=== PATIENT | female | born 1950 ===

== ENCOUNTER 2021-03-26 06:00 | Day surgery (SDC) | payer OTHER | END 2021-03-26 10:25 | disposition home or self-care (01) | LOC: AMB-ENDOS 06:00 | PROVIDERS: ATTEND Colon & Rectal Surgery | DX: K62.89 Other specified diseases of anus and rectum (principal); K64.1 Second degree hemorrhoids ==

== ENCOUNTER 2021-05-24 11:15 | Inpatient (IN) | payer OTHER ==
[~2021-05-24] VITALS: Ht 152.4 cm; Wt 77.1 kg
[2021-05-24] MEDS ORDERED: METFORMIN HCL500 M3 PO (14:10)
[2021-05-24] MEDS ORDERED: PRAVASTATIN SOD40 MG PO (14:10)
[2021-05-24] MEDS ORDERED: DIOVAN320 MG PO (14:10)
[2021-05-24] MEDS ORDERED: SYNTHROID112 MCG PO (14:11)
== END 2021-06-01 22:51 | disposition home or self-care (01) | DRG 330 ==
LOC: SURH 05-26 07:00 → SURG 05-26 09:25 → O/R 05-26 09:25 → SURH 05-26 11:15 → SURG 05-26 17:18
PROVIDERS: ADMIT Colon & Rectal Surgery; ATTEND Colon & Rectal Surgery
PROC: 0DBP0ZZ Excision of Rectum, Open Approach (ICD-10-PCS; 2021-05-26)
PROC: 0WQF0ZZ Repair Abdominal Wall, Open Approach (ICD-10-PCS; 2021-05-26)
PROC: 0WUF07Z Supplement Abdominal Wall with Autologous Tissue Substitute, Open Approach (ICD-10-PCS; 2021-05-26)
PROC: 0TQB4ZZ Repair Bladder, Percutaneous Endoscopic Approach (ICD-10-PCS; 2021-05-26)
PROC: 0DBL4ZZ Excision of Transverse Colon, Percutaneous Endoscopic Approach (ICD-10-PCS; 2021-05-26)
PROC: 0DTN0ZZ Resection of Sigmoid Colon, Open Approach (ICD-10-PCS; principal; 2021-05-26 07:00)
PROC: 30233N1 Transfusion of Nonautologous Red Blood Cells into Peripheral Vein, Percutaneous Approach (ICD-10-PCS; 2021-05-30)
PROC: 02HV33Z Insertion of Infusion Device into Superior Vena Cava, Percutaneous Approach (ICD-10-PCS; 2021-05-30)
DX: K57.20 Diverticulitis of large intestine with perforation and abscess without bleeding (principal); N32.1 Vesicointestinal fistula; J90 Pleural effusion, not elsewhere classified; D62 Acute posthemorrhagic anemia; R06.02 Shortness of breath; Z93.3 Colostomy status; G47.39 Other sleep apnea; Z20.822 Contact with and (suspected) exposure to COVID-19; I11.9 Hypertensive heart disease without heart failure; E11.69 Type 2 diabetes mellitus with other specified complication; Z79.4 Long term (current) use of insulin; E03.8 Other specified hypothyroidism